=== PATIENT | male | born 1955 | race African-American/Black ===

== ENCOUNTER 2016-04-03 03:35 | Emergency (ER) | payer OTHER ==
[2016-04-03 06:20] VITALS: BP 111/59
--- NOTE | 2016-04-03 06:41 | ED ---
bianca Ibanez Timothy, scribed for Oseas Dickerson MD on 04/03/16 at 0354 . Substance Abuse/Use - HPI Summary HPI Summary: Konrad Gonzalez is a 60 yo male [facility] Heroin overdose earlier tonight. Pt was given 2mg Narcan intranasal FIL[employer] by EMS. Pt states he is nauseous currently. Pt states he currently has shingles - History Of Current Complaint Stated Complaint: OVERDOSE Hx Obtained From: Patient Ingestion History: Type/Name Of Drug - Heroin Severity Initially: Moderate Severity Currently: Moderate Associated Signs And Symptoms: Shortness Of Breath - respiratory failure - Allergies/Home Medications Allergies/Adverse Reactions: Allergies Allergy/AdvReac Type Severity Reaction Status Date / Time No Known Allergies Allergy Verified 07/07/13 10:43 PMH/Surg Hx/FS Hx/Imm Hx Endocrine/Hematology History: Denies: Hx Diabetes, Hx Thyroid Disease Cardiovascular History: Denies: Hx Hypertension Respiratory History: Reports: Hx Asthma - albuterol mdi prn Denies: Hx Chronic Obstructive Pulmonary Disease (COPD) GI History: Denies: Hx Ulcer - Immunization History Date of Tetanus Vaccine: 1999 Date of Influenza Vaccine: never Infectious Disease History: Yes Infectious Disease History: Denies: Hx Clostridium Difficile, Hx Hepatitis, Hx Human Immunodeficiency Virus (HIV), Hx of Known/Suspected MRSA, Hx Shingles, Hx Tuberculosis, Traveled Outside the [place] in Last 30 Days - Family History Known Family History: Positive: Unknown - Social History Alcohol Use: Occasionally Hx Substance Use: No Substance Use Type: Reports: None Hx Tobacco Use: Yes Smoking Status (MU): Never Smoked Tobacco Type: Cigarettes Amount Used/How Often: 1/4 ppd Review of Systems Constitutional: Negative Eyes: Negative ENT: Negative Cardiovascular: Negative Respiratory: Negative Positive: Nausea Genitourinary: Negative Musculoskeletal: Negative Skin: Negative Neurological: Negative Psychological: Normal All Other Systems Reviewed And Are Negative: Yes Physical Exam - Summary Physical Exam Summary: GENERAL: Awake, alert, oriented, no acute distress, very pleasant HEENT: Head is normocephalic, atraumatic, anicteric sclera, clear conjunctiva, 3mm pupils, mucous membranes moist, no erythema, no discharge, no lesions, neck is supple, trachea is midline, no JVD CARDIAC: Regular rate and rhythm, S1, S2, no rub, no murmur, no gallop, 2+ radial and pedal pulses bilaterally RESPIRATORY: Clear to auscultation bilaterally with no rales, rhonchi, or wheezes, non-tender ABDOMEN: Bowel sounds positive, no bruit, soft, non-tender, no CVA tenderness EXTREMITIES: No edema, warm, dry, moving all extremities in a grossly normal manner NEUROLOGICAL: Mood is appropriate, moving all extremities in a grossly normal manner Triage Information Reviewed: Yes Vital Signs On Initial Exam: Initial Vitals Temp Pulse Resp BP Pulse Ox 97 F 71 23 93/49 93 04/03/16 03:45 04/03/16 03:45 04/03/16 03:45 04/03/16 03:45 04/03/16 03:45 Vital Signs Reviewed: Yes Diagnostics - Vital Signs Vital Signs Temp Pulse Resp BP Pulse Ox 04/03/16 03:45 97 F 71 23 93/49 93 - Laboratory Lab Statement: Any lab studies that have been ordered have been reviewed, and results considered in the medical decision making process. - EKG 0344 Cardiac Rate: NL - 69 BPM EKG Interpretation: NSR @ 69 BPM, RBBB, no prior for comparison Course/Dx - Diagnoses Provider Diagnoses: Heroin overdose Discharge - Discharge Plan Condition: Stable Disposition: LAW ENFORCEMENT/COURT Patient Education Materials: Narcotic Abuse (ED) Referrals: Non Staff,Doctor [Primary Care Provider] - 2 Days [facility] PHYSICIAN REFERRAL [Outside] - 2 Days Additional Instructions: Follow up with your primary care physician regarding your admission to the emergency department. Return to the emergency department with any new or recurring symptoms. The documentation as recorded by the bianca mcconnell Timothy accurately reflects the service I personally performed and the decisions made by , Oseas Dickerson MD.
== END 2016-04-03 06:20 ==
LOC: ED 03:35
DX: R06.02 Shortness of breath (principal); R11.0 Nausea; T40.1X1A Poisoning by heroin, accidental (unintentional), initial encounter; Y92.9 Unspecified place or not applicable
CPT/HCPCS: 93005; 99282

== ENCOUNTER → 2018-01-13 00:09 | Emergency (ER) | payer SELFPAY ==
[~2018-01-13 00:09] MED LIST: Cyclobenzaprine TAB* 10 MG PO ONE; Ketorolac INJ* 60 MG/2 ML VIAL IM ONE; Lidocaine PATCH 5%* 1 PATCH TRANSDERM ONE
--- NOTE | 2018-01-13 00:52 | ED ---
Lower Extremity - HPI Summary HPI Summary: 62-year-old male presents with left leg pain, chest wall pain, and head injury since yesterday. He states that he may have fallen when he had some ETOH. He has abrasion noted to forehead. He states he was vomiting earlier in the day. He states that he fell asleep on a table the night before and woke up with back pain. States the back pain radiates to his left leg. no saddle anesthesia or loss of bowel or bladder. states that he entire leg feels numb. No fevers. Hasn't taking anything for his pain. He denies any bowel pain. No shortness of breath. No neck pain. No other injury. no urinary symptoms. he states his ribs hurt when he woke up this morning. no cardiac history. he states it is chest wall pain and is reproducible. - History of Current Complaint Chief Complaint: EDExtremityLower Stated Complaint: LT LEG PAIN Time Seen by Provider: 01/13/18 00:25 Pain Intensity: 10 - Allergies/Home Medications Allergies/Adverse Reactions: Allergies Allergy/AdvReac Type Severity Reaction Status Date / Time black pepper Allergy Rash Verified 01/13/18 00:35 PMH/Surg Hx/FS Hx/Imm Hx Endocrine/Hematology History: Denies: Hx Diabetes, Hx Thyroid Disease Cardiovascular History: Denies: Hx Hypertension Respiratory History: Reports: Hx Asthma - albuterol mdi prn Denies: Hx Chronic Obstructive Pulmonary Disease (COPD) GI History: Denies: Hx Ulcer - Immunization History Date of Tetanus Vaccine: 1999 Date of Influenza Vaccine: never Infectious Disease History: Yes Infectious Disease History: Denies: Hx Clostridium Difficile, Hx Hepatitis, Hx Human Immunodeficiency Virus (HIV), Hx of Known/Suspected MRSA, Hx Shingles, Hx Tuberculosis, Traveled Outside the [place] in Last 30 Days - Family History Known Family History: Positive: Unknown - Social History Alcohol Use: Occasionally Hx Substance Use: No Substance Use Type: Reports: None Hx Tobacco Use: Yes Smoking Status (MU): Light Every Day Tobacco Smoker Type: Cigarettes Amount Used/How Often: 1/4 ppd Review of Systems Negative: Fever Positive: Chest Pain - wall pain Negative: Shortness Of Breath Positive: Myalgia - back and left leg pain Positive: Headache All Other Systems Reviewed And Are Negative: Yes Physical Exam Triage Information Reviewed: Yes Vital Signs On Initial Exam: Initial Vitals Temp Pulse Resp BP Pulse Ox 98.5 F 77 16 151/100 95 01/13/18 00:11 01/13/18 00:11 01/13/18 00:11 01/13/18 00:11 01/13/18 00:11 Vital Signs Reviewed: Yes Appearance: Positive: Well-Appearing Skin: Positive: Warm, Dry, Other - abrasion to forehead with contusion present Head/Face: Positive: Normal Head/Face Inspection, Other - no step off, racoon eyes, mcgrath sign Eyes: Positive: Normal, EOMI, BRIANDA, Conjunctiva Clear ENT: Positive: Normal ENT inspection, Pharynx normal, TMs normal Respiratory/Lung Sounds: Positive: Clear to Auscultation, Breath Sounds Present , Other - tenderness on chest wall Cardiovascular: Positive: Normal, RRR Abdomen Description: Positive: Nontender, Soft Bowel Sounds: Positive: Present Musculoskeletal: Positive: Limited @ - left leg, Other - tenderness over si joint left, no midline tenderness back, pos SLR, good pulses, sensation grossly intact to touch Neurological: Positive: Sensory/Motor Intact, Alert, Oriented to Person Place, Time, CN Intact II-III, Babinski Bilateral - normal Psychiatric: Positive: Normal Diagnostics - Vital Signs Vital Signs Temp Pulse Resp BP Pulse Ox 01/13/18 00:11 98.5 F 77 16 151/100 95 - Laboratory Lab Statement: Any lab studies that have been ordered have been reviewed, and results considered in the medical decision making process. - CT brain CT Interpretation: No Acute Changes CT Interpretation Completed By: Radiologist chest CT Interpretation: No Acute Changes CT Interpretation Completed By: Radiologist lumbar CT Interpretation: Positive (See Comments) - IMPRESSION: There are acute fractures of the right transverse processes of L1-L2 and L3 with slight separation. No other fracture. CT Interpretation Completed By: Radiologist Lower Extremity Course/Dx - Course Course Of Treatment: 62-year-old male presents with left leg pain, chest wall pain, and head injury yesterday. He states that he may have fallen when he was drunk. He has abrasion noted to forehead. He states he was vomiting earlier in the day. He states that he fell asleep on a table the night before and woke up with back pain. States the back pain radiates to his left leg. no saddle anesthesia or loss of bowel or bladder. No fevers. Hasn't taking anything for his pain. He denies any bowel pain. No shortness of breath. No neck pain. No other injury. no urinary symptoms. he states his ribs hurt. on exam reproducible chest wall pain. tenderness over SI joint left side of back. neurovascular intact. normal neuro exam. will vomiting and ETOH got CT brain. CT brain normal. chest normal. CT lumbar shows fracture of L1-L2 and L3. on exam patient does not have pain there. has pain at L5 level. discussed will give flexeril, steriod pack and ibuprofen for pain. told to follow up with neurosurgery about fractures although they are stable fractures. told to est care with primary. patient understand and agrees with plan. - Diagnoses Differential Diagnosis/HQI/PQRI: Positive: Fracture (Closed), Sprain, Strain, Other - sciatica Provider Diagnoses: Head injury, Chest wall pain, Left leg pain, Fracture of transverse process of lumbar vertebra Discharge - Sign-Out/Discharge Documenting (check all that apply): Patient Departure - Discharge Plan Condition: Good Disposition: HOME Prescriptions: Cyclobenzaprine TAB* [Flexeril 10 MG TAB*] 10 mg PO TID PRN #21 tab PRN Reason: Pain Ibuprofen TAB* [Motrin TAB* 600 MG] 600 mg PO Q8H PRN #20 tab PRN Reason: Pain methylPREDNISolone [Medrol Dosepak 4 MG*] 4 mg PO .SEE TAYLOR INSTRUCTION #1 packet Patient Education Materials: Lumbar Radiculopathy (ED) Referrals: Care [facility] [Outside] Dony Pena MD [Medical Doctor] - Additional Instructions: follow up with [facility] connections within 5 days follow up with neurosurgery Follow directions on package for Medrol pack Take muscle relaxers three times a day Use ibuprofen or Tylenol for pain every 8 hours ice/heat area, move as much as possible Return to ED if develop any new or worsening symptoms - Billing Disposition and Condition Condition: GOOD Disposition: Home
--- NOTE | 2018-01-13 01:30 | RAD ---
EXAM: CT Head Without Intravenous Contrast CLINICAL HISTORY: 62 years old, male; Injury or trauma; Fall; Additional info: Fall, head injury TECHNIQUE: Axial computed tomography images of the head/brain without intravenous contrast. All CT scans at this facility use at least one of these dose optimization techniques: automated exposure control; mA and/or kV adjustment per patient size (includes targeted exams where dose is matched to clinical indication); or iterative reconstruction. COMPARISON: No relevant prior studies available. FINDINGS: Brain: Unremarkable. No hemorrhage. No significant white matter disease. No edema. Ventricles: No intracranial bleed, suspicious mass, or mass effect. Ventricles appear unremarkable. Bones/joints: Unremarkable. No acute fracture. Soft tissues: Unremarkable. Sinuses: Unremarkable as visualized. No acute sinusitis. Mastoid air cells: Unremarkable as visualized. No mastoid effusion. IMPRESSION: No intracranial bleed, suspicious mass, or mass effect. Ventricles appear unremarkable. To contact [facility] with a general question: [facility] - [phone] For direct physician to physician contact: Physician Hotline - [phone] [facility] ([facility] Facility ID #[id number])
--- NOTE | 2018-01-13 01:44 | RAD ---
EXAM: CT Chest Without Intravenous Contrast CLINICAL HISTORY: 62 years old, male; Pain; Chest wall pain; Additional info: Chest wall pain, fall TECHNIQUE: Axial computed tomography images of the chest without intravenous contrast. All CT scans at this facility use at least one of these dose optimization techniques: automated exposure control; mA and/or kV adjustment per patient size (includes targeted exams where dose is matched to clinical indication); or iterative reconstruction. Coronal and sagittal reformatted images were created and reviewed. COMPARISON: No relevant prior studies available. FINDINGS: Lungs: No consolidation, effusion or edema. Pleural space: See findings above and below. Heart: Unremarkable. No cardiomegaly. No significant pericardial effusion. Bones/joints: No fracture or pneumothorax. Soft tissues: See above. Vasculature: Unremarkable. No thoracic aortic aneurysm. Lymph nodes: Unremarkable. No enlarged lymph nodes. Kidneys and ureters: Right renal cysts. IMPRESSION: 1. No consolidation, effusion or edema. 2. No fracture or pneumothorax. To contact [facility] with a general question: [facility] - [phone] For direct physician to physician contact: Physician Hotline - [phone] [facility] ([facility] Facility ID #[id number])
--- NOTE | 2018-01-13 01:46 | RAD ---
EXAM: CT Lumbar Spine Without Intravenous Contrast CLINICAL HISTORY: 62 years old, male; Pain; Low back pain; Additional info: Left side back pain TECHNIQUE: Axial computed tomography images of the lumbar spine without intravenous contrast. All CT scans at this facility use at least one of these dose optimization techniques: automated exposure control; mA and/or kV adjustment per patient size (includes targeted exams where dose is matched to clinical indication); or iterative reconstruction. Coronal and sagittal reformatted images were created and reviewed. COMPARISON: No relevant prior studies available. FINDINGS: Vertebrae: There are acute fractures of the right transverse process of L1-L2 and L3 with slight separation. No other fracture. Discs/spinal canal/neural foramina: Moderate degenerative change without critical stenosis. Soft tissues: Unremarkable. Kidneys and ureters: Right renal cyst. IMPRESSION: There are acute fractures of the right transverse processes of L1-L2 and L3 with slight separation. No other fracture. To contact [facility] with a general question: [facility] - [phone] For direct physician to physician contact: Physician Hotline - [phone] [facility] ([facility] Facility ID #[id number])
[2018-01-13 04:08] VITALS: BP 0/0
== END | disposition home or self-care (01) ==
LOC: ED 00:09
DX: S09.90XA Unspecified injury of head, initial encounter (principal); S32.009A Unspecified fracture of unspecified lumbar vertebra, initial encounter for closed fracture; M79.605 Pain in left leg; R07.89 Other chest pain; F17.210 Nicotine dependence, cigarettes, uncomplicated; R51 Headache; W19.XXXA Unspecified fall, initial encounter; Y92.9 Unspecified place or not applicable
CPT/HCPCS: 70450; 71250; 72131; 96372; 99282; A9270-GY; J1885

== ENCOUNTER 2018-01-26 08:57 | Emergency (ER) | payer SELFPAY ==
[2018-01-26 09:08] VITALS: BP 150/83
--- NOTE | 2018-01-26 09:49 | UC ---
Lower Extremity/Ankle HPI - HPI Summary HPI Summary: Patient complains of 2 weeks of progressively worsening left lower extremity swelling, redness and pain. Went to [facility] ED 01/13/18 and was diagnosed with radiculopathy and transverse process fractures of L1, L2 and L3. Was given Medrol dosepak, flexeril and ibuprofen. Pt states the pain and swelling are now worse and he has developed dysuria. No fever, nausea or abdominal pain. States he has some "bubbles" coming out of his penis. - History of Current Complaint Chief Complaint: UCLowerExtremity Stated Complaint: LEG COMPLAINT Time Seen by Provider: 01/26/18 09:03 Hx Obtained From: Patient Onset/Duration: Gradual Onset, Lasting Weeks, Still Present Severity Initially: Moderate Severity Currently: Moderate Pain Intensity: 8 Pain Scale Used: 0-10 Numeric Aggravating Factor(s): Standing, Ambulation Alleviating Factor(s): Rest Able to Bear Weight: Yes - Allergies/Home Medications Allergies/Adverse Reactions: Allergies Allergy/AdvReac Type Severity Reaction Status Date / Time black pepper Allergy Rash Verified 01/26/18 09:07 PMH/Surg Hx/FS Hx/Imm Hx Respiratory History: Asthma - Surgical History Surgical History: None - Family History Family History: SISTER - DVT - Social History Alcohol Use: Occasionally Substance Use Type: None Smoking Status (MU): Light Every Day Tobacco Smoker Type: Cigarettes Amount Used/How Often: 1/4 ppd Review of Systems Constitutional: Negative Skin: Other - LEFT LEG REDNESS/SWELLING Respiratory: Negative Cardiovascular: Negative Gastrointestinal: Negative Genitourinary: Dysuria Musculoskeletal: Arthralgia, Calf Tenderness, Edema All Other Systems Reviewed And Are Negative: Yes Physical Exam Triage Information Reviewed: Yes Appearance: Well-Appearing, No Pain Distress, Well-Nourished Vital Signs: Initial Vital Signs Temp 99.0 F 01/26/18 09:01 Pulse 97 01/26/18 09:01 Resp 18 01/26/18 09:01 BP 150/83 01/26/18 09:01 Pulse Ox 98 01/26/18 09:01 Vital Signs Reviewed: Yes Eyes: Positive: Conjunctiva Clear ENT: Positive: Hearing grossly normal Neck: Positive: Supple Respiratory: Positive: No respiratory distress, No accessory muscle use Cardiovascular: Positive: Pulses Normal Abdomen Description: Positive: Soft Musculoskeletal: Positive: Edema @ - LEFT LEG FROM GROIN TO FOOT SIGNIFICANTLY EDEMATOUS, Other: - MINIMAL LEFT CALF TENDERNESS Neurological: Positive: Alert Psychological: Positive: Age Appropriate Behavior Skin: Positive: Other - LEFT LEG ERYTHEMA Lower Extremity Course/Dx - Differential Dx/Diagnosis Provider Diagnoses: 1. LEFT LOWER EXTREMITY EDEMA. 2. HEMATURIA Discharge - Sign-Out/Discharge Documenting (check all that apply): Patient Departure All imaging exams completed and their final reports reviewed: No Studies - Discharge Plan Condition: Stable Disposition: TRANS HIGHER LV OF CARE FAC Patient Education Materials: Hematuria (ED), Leg Edema (ED) Referrals: [facility] [Outside] - 2 Weeks Lance Gong MD [Medical Doctor] - If Needed Additional Instructions: GO DIRECTLY TO THE [facility] ED FROM HERE FOR FURTHER EVALUATION OF YOUR LEG. I AM CONCERNED ABOUT THE DEGREE OF SWELLING IN YOUR LEFT LEG. I THINK YOU WOULD BENEFIT FROM IMAGING (ULTRASOUND). YOU HAVE DECLINED TRANSFER TO THE ED BY AMBULANCE. BE ADVISED THAT BY NOT TRAVELING IN A MONITORED SETTING YOU COULD BE RISKING WORSENING OF YOUR CONDITION THAT COULD POSE A THREAT TO YOUR LIFE, HEALTH AND MEDICAL SAFETY. YOU HAVE BLOOD IN YOUR URINE TODAY. THIS MAY JUST BE A TRANSIENT CONDITION DUE TO ACTIVITY BUT YOU MUST REPEAT THE URINE TEST IN A COUPLE OF WEEKS TO ENSURE IT HAS CLEARED. IF PERSISTENT YOU MUST FOLLOW-UP WITH UROLOGY FOR FURTHER EVALUATION BE SURE TO FOLLOW-UP WITH NEUROSURGERY ADVISED AT YOUR LAST ED VISIT FOR YOUR VERTEBRAL FRACTURES. CALL THE NUMBER BELOW FOR ASSISTANCE IN ESTABLISHING WITH A PCP An additional resource available to assist in finding the appropriate physician for your health care needs is the [facility] ([facility]). You may contact them by calling [phone]. - Billing Disposition and Condition Condition: STABLE Disposition: Trans Higher Lvl of Care Fac
== END 2018-01-26 09:54 | disposition short-term general hospital (02) ==
LOC: UCEAST 08:57
DX: R60.0 Localized edema (principal); R31.9 Hematuria, unspecified; F17.210 Nicotine dependence, cigarettes, uncomplicated
CPT/HCPCS: 81003; 87086; 87491; 87591; 99212; G0463

== ENCOUNTER 2018-03-14 13:39 | Inpatient (IN) | payer MEDICAID, OTHER ==
--- NOTE | 2018-03-14 14:08 | ED ---
HPI Chest Pain - HPI Summary HPI Summary: This pt is a 62 y/o male presenting to [facility] c/o chest pain for the past few days. Pt reports he only has chest pain when he coughs. He describes chest pain as mid sternal nonradiating and sharp and "pins and needles." Additionally notes coughing with blood, diaphoresis, left leg swelling. Denies fever, chills , SOB, nausea, vomiting, headache, weakness, numbness. Pt states he had blood thinners last month, but no longer takes them. He admits to tobacco use and occasional alcohol. No cardiac hx. - History of Current Complaint Chief Complaint: EDChestWallPain Time Seen by Provider: 03/14/18 13:54 Hx Obtained From: Patient Onset/Duration: Started Days Ago, Still Present Timing: Lasting Days Current Severity: Moderate Chest Pain Location: Mid Sternal Chest Pain Radiates: No Character: Sharp/Stabbing - sharp, Other: - pin and needles Aggravating Factor(s): Other: - cough Alleviating Factor(s): Nothing Associated Signs and Symptoms: Positive: Chest Pain, Diaphoresis, Cough, Edema. Negative: Headaches, Numbness, Weakness, Shortness of Breath, Fever, Chills, Nausea, Vomiting - Allergy/Home Medications Allergies/Adverse Reactions: Allergies Allergy/AdvReac Type Severity Reaction Status Date / Time black pepper Allergy Rash Verified 01/26/18 09:07 Home Medications: Home Medications NK [No Home Medications Reported] 03/14/18 [History Confirmed 03/14/18] PMH/Surg Hx/FS Hx/Imm Hx Endocrine/Hematology History: Denies: Hx Diabetes, Hx Thyroid Disease Cardiovascular History: Denies: Hx Coronary Artery Disease, Hx Hypertension Respiratory History: Reports: Hx Asthma - albuterol mdi prn Denies: Hx Chronic Obstructive Pulmonary Disease (COPD) GI History: Denies: Hx Ulcer - Immunization History Date of Tetanus Vaccine: 1999 Date of Influenza Vaccine: never Infectious Disease History: No Infectious Disease History: Denies: Hx Clostridium Difficile, Hx Hepatitis, Hx Human Immunodeficiency Virus (HIV), Hx of Known/Suspected MRSA, Hx Shingles, Hx Tuberculosis, Traveled Outside the [place] in Last 30 Days - Family History Known Family History: Positive: Hypertension - father and sister Family History: SISTER - DVT - Social History Alcohol Use: Occasionally Hx Substance Use: No Substance Use Type: Reports: None Hx Tobacco Use: Yes Smoking Status (MU): Light Every Day Tobacco Smoker Type: Cigarettes Amount Used/How Often: 1/4 ppd Review of Systems Positive: Skin Diaphoresis. Negative: Fever, Chills Positive: Chest Pain Respiratory: Other - POS: hemoptysis Positive: Cough. Negative: Shortness Of Breath Negative: Vomiting, Nausea Positive: Edema - left leg Negative: Headache, Weakness, Numbness All Other Systems Reviewed And Are Negative: Yes Physical Exam - Summary Physical Exam Summary: VITAL SIGNS: Reviewed. GENERAL: Patient is a well-developed and nourished male who is lying comfortable in the stretcher. Patient is not in any acute respiratory distress. HEAD AND FACE: No signs of trauma. No ecchymosis, hematomas or skull depressions. No sinus tenderness. EYES: PERRLA, EOMI x 2, No injected conjunctiva, no nystagmus. EARS: Hearing grossly intact. Ear canals and tympanic membranes are within normal limits. MOUTH: Oropharynx within normal limits. NECK: Supple, trachea is midline, no adenopathy, no JVD, no carotid bruit, no c- spine tenderness, neck with full ROM. CHEST: Symmetric, reproducible chest tenderness LUNGS: Crackles in both bases of the lungs. Wheezing. CVS: Regular rate and rhythm, S1 and S2 present, no murmurs or gallops appreciated. ABDOMEN: Soft, non-tender. No signs of distention. No rebound, no guarding, and no masses palpated. Bowel sounds are normal. EXTREMITIES: FROM in all major joints, no edema, no cyanosis or clubbing. NEURO: Alert and oriented x 3. No acute neurological deficits. Speech is normal and follows commands. SKIN: Dry and warm Triage Information Reviewed: Yes Vital Signs On Initial Exam: Initial Vitals Temp Pulse Resp BP Pulse Ox 99 F 110 20 131/66 97 03/14/18 13:42 03/14/18 13:42 03/14/18 13:42 03/14/18 13:42 03/14/18 13:42 Vital Signs Reviewed: Yes Diagnostics - Vital Signs Vital Signs Temp Pulse Resp BP Pulse Ox 03/14/18 13:42 99 F 110 20 131/66 97 - Laboratory Result Diagrams: 03/14/18 14:10 03/14/18 14:09 Lab Statement: Any lab studies that have been ordered have been reviewed, and results considered in the medical decision making process. - Radiology Chest XR Radiology Interpretation Completed By: Radiologist Summary of Radiographic Findings: IMPRESSION: Left upper lobe density consistent with either mass or infiltrate recommend a CT of the chest with contrast for further evaluation. Dr. Anderson has reviewed this report. - EKG 13:51 Cardiac Rate: NL - at 98 bpm EKG Rhythm: Sinus Rhythm EKG Comparison: No Significant Change - similar to prior EKG on 04/03/16. Summary of EKG Findings: Right bundle branch block. Re-Evaluation - Re-Evaluation First Eval Re-Evaluation Time: 15:00 Comment: I reviewed the lab and XR results with the pt. I discussed with pt the admission plan. Chest Pain Course/Dx - Course Assessment/Plan: This pt is a 62 y/o male presenting to [facility] c/o chest pain for the past few days. Pt reports he only has chest pain when he coughs. He describes chest pain as mid sternal nonradiating and sharp and "pins and needles." Additionally notes coughing with blood, diaphoresis, left leg swelling. Denies fever, chills, SOB, nausea, vomiting, headache, weakness, numbness. Pt states he had blood thinners last month, but no longer takes them. He admits to tobacco use and occasional alcohol. No cardiac hx. Blood work shows a WBC of 18, hemoglobin 12.2, hematocrit 37, platelets 220. INR is 1.16, APTT of 36.5, sodium 1:30, chloride 99, BUN is 26 and creatinine is 1.33. Glucose is 146 and magnesium 1.5 for which the patient was given magnesium IV. Chest x-ray impression: Left upper lobe density consistent with either a mass or infiltrate recommend a CT of the chest without contrast for further regulation. In the ED course the patient was given IV fluids, Rocephin and azithromycin for the pneumonia. At this point I discussed my physical exam and findings with Dr. Barbosa from the hospitalist services who accepted the patient for admission. Patient is hemodynamically stable, alert oriented 3. - Diagnoses Provider Diagnoses: Pneumonia - Provider Notifications Discussed Care Of Patient With: Shaista Barbosa - hospitalist Time Discussed With Above Provider: 14:55 Instructed by Provider To: Admit As Inpatient Discharge - Sign-Out/Discharge Documenting (check all that apply): Patient [place]arture [place] [facility] [place] Condition: Stable Disposition: ADMITTED TO [facility] - Billing Disposition and Condition Condition: STABLE Disposition: Admitted to [facility] - Attestation Statements Document Initiated by Julia: Yes Documenting Scribe: Amy Keane Provider For Whom Julia is Documenting (Include Credential): Elfego Anderson MD Scribe Attestation: Amy Ibanez, scribed for Elfego Anderson MD on 03/14/18 at 1907. Scribe Documentation Reviewed: Yes Provider Attestation: The documentation as recorded by the Amy mcconnell accurately reflects the service I personally performed and the decisions made by , Elfego Anderson MD Status of Scribe Document: Viewed
[2018-03-14 14:26] LABS: Activated Partial Thrombo Time 36.5 seconds (26.0-36.3); INR 1.16 (0.77-1.02)
[2018-03-14 14:34] LABS: Hematocrit 37 % (42-52); Hemoglobin 12.2 g/dl (14.0-18.0); Mean Corpuscular HGB Conc 33 g/dl (31-36); Mean Corpuscular Hemoglobin 27 pg (27-31); Mean Corpuscular Volume 82 fL (80-94); Mean Platelet Volume 8.7 fL (7.4-10.4); Platelet Count 220 10^3/ul (150-450); Red Blood Count 4.47 10^6/ul (4.00-5.40); Red Cell Distribution Width 16 % (10.5-15)
[2018-03-14 14:37] LABS: Albumin 3.6 g/dL (3.2-5.2); Albumin/Globulin Ratio 0.8 (1-3); BUN/Creatinine Ratio 19.5 (8-20); Calcium 8.9 mg/dL (8.6-10.3); EGFR Non-African American 54.7 (>60); Globulin 4.7 g/dL (2-4); Magnesium 1.5 mg/dL (1.9-2.7); Potassium 3.8 mmol/L (3.5-5.0); Total Bilirubin 0.8 mg/dL (0.2-1.0); Total Protein 8.3 g/dL (6.4-8.9)
[2018-03-14] MEDS ORDERED: cefTRIAXone(*) 1 GM in NS 0.9% 50 ML* 50 ML IVPB ONE (14:40)
[2018-03-14] MEDS ORDERED: Azithromycin IV* 500 MG ADVAN VIAL/BAG IVPB ONE (14:40)
[2018-03-14] MEDS ORDERED: Magnesium Sulfate 1 GM IV* 1 GM/100 ML BAG IV ONE (14:56)
[2018-03-14 15:02] LABS: TSH (Thyroid Stimulating Horm) 1.98 mcIU/mL (0.34-5.60)
[2018-03-14 15:28] LABS: Immature Granulocytes 11 % (0-9); Lymphocytes % 4 %; Monocytes % 3 %; Neutrophil % 81 %
[2018-03-14 15:30] LABS: ABS Neutrophils 16.56 10^3/ul (1.5-7.7)
[2018-03-14 15:31] LABS: ABS Basophils 0.18 10^3/ul (0-0.2)
[2018-03-14] MEDS ORDERED: Ondansetron INJ* 2 MG/ML VIAL IV PRN (16:30)
[2018-03-14] MEDS ORDERED: Acetaminophen TAB* 325 MG PO PRN (16:30)
[2018-03-14] MEDS ORDERED: Albuterol 2.5 MG/3 ML NEB.SOL* (0.083%) INH PRN (16:30)
[2018-03-14] MEDS ORDERED: NS 0.9% 1000 ML* 1,000 ML IV ONE (16:30)
[2018-03-14] MEDS ORDERED: Iohexol 300* (CONTRAST) 10 ML SDV IV ONE (16:34)
[2018-03-14 17:01] LABS: C Reactive Protein 231.08 mg/L (<8.01)
--- NOTE | 2018-03-14 19:45 | HP ---
HISTORY AND PHYSICAL: DATE OF ADMISSION: 03/14/18 PRIMARY CARE PROVIDER: None. PROVIDER: Vickie Amaya NP ATTENDING PHYSICIAN WHILE IN THE HOSPITAL: Dr. Shaista Barbosa * (dictated by Vickie Amaya NP). CHIEF COMPLAINT: 1. Shortness of breath. 2. Hemoptysis. HISTORY OF PRESENT ILLNESS: Mr. Gonzalez is a 62-year-old male with no significant past medical history, who presented to the emergency room with complaints of coughing up blood for 3 to 4 days, night sweats and shortness of breath. The patient does report that he has increased pain in his left chest with deep breath and coughing. He also reports that he has a remote history of left leg swelling approximately 2 months ago. He denies any fever. He denies any chills. Denies any headache, vomiting, nausea or diarrhea. He does report chest pain associated with cough and deep breath. He does report hemoptysis. He does report slight shortness of breath. He denies any hematuria or dysuria. He denies any focal weakness or sensory loss. Denies any visual complaints of dysphagia, arthralgias, myalgias, rashes, lesions, or open sores. He does complain of pain to his left foot that has been chronic times several months. While in the emergency room, he had routine lab work drawn. He was found to have 18,000 white count and chest x-ray with questionable left upper lobe density, consolidation versus mass. Due to the concern for pneumonia, we were asked to see and evaluate him for admission. PAST MEDICAL HISTORY: Asthma. PAST SURGICAL HISTORY: None. HOME MEDICATIONS: Albuterol inhaler as needed. ALLERGIES: To BLACK PEPPER. FAMILY HISTORY: No reported history of coronary artery disease. Father with a history of diabetes, sister with a history of breast cancer. SOCIAL HISTORY: He reports he smokes 4 to 5 cigarettes daily x40 years. He does use alcohol occasionally. He denies any illicit drug use. He is , but lives alone. Surrogate decision maker in the event he is unable to make his own decisions is his sister, Basia. He is a full code. REVIEW OF SYSTEMS: There has been no documented fever. No unintended weight loss. He does report chest pain with cough and deep breath. Denies any edema. Does report cough, hemoptysis, and slight shortness of breath. Denies any nausea, vomiting, or diarrhea. Denies any abdominal pain. Denies any gross hematuria or dysuria. Denies any focal weakness or sensory loss. Denies any visual complaints, dysphagia, arthralgias or myalgias. Denies any rashes or lesions. Denies any psychosis or anxiety. He does report pain to his left foot that has been chronic times several months. PHYSICAL EXAMINATION GENERAL: Mr. Gonzalez is a 62-year-old male. Alert and oriented, sitting on the stretcher in the emergency room. He does not appear to be in any acute distress. HEENT: Head is atraumatic, normocephalic. Eyes: EOMs are intact. Sclerae anicteric and not pale. Oral mucosa appear to be moist. NECK: Supple. LUNGS: Lungs are diminished bilaterally with a few scattered rhonchi. CARDIAC: S1, S2. Regular rate and rhythm. No murmurs, rubs, or gallops. ABDOMEN: Soft and nontender. Bowel sounds are present x4. EXTREMITIES: Pedal pulses are +2 bilaterally. There is no pitting edema noted to the lower extremities. He can move all 4 extremities with 5/5 strength. NEUROLOGIC: He is awake, alert, and oriented x3. Speech is clear. Thought process is intact. There is no gross focal deficits. SKIN: Intact. DIAGNOSTIC STUDIES/LAB DATA: WBCs were 18.0, RBCs 4.47, hemoglobin 12.2, hematocrit was 37, platelet count was 220, absolute neutrophils were 16.56, absolute lymphs were 72. INR was 1.16, APTT was 36.5. Chemistry: Sodium was 130, potassium 3.8, chloride was 99, carbon dioxide was 23, anion gap was 8, BUN was 26, creatinine 1.33, glucose was 146, lactic acid 1.5, calcium 8.9, magnesium was 1.5. ASTs were 19, ALTs were 11, alkaline phosphatase was 52. Total creatine kinase was 48. Troponin was 0.03. C-reactive protein is pending. BNP was 58. TSH was 1.98. He had a chest x-ray. Radiologist's impression: Left upper lobe density consistent with either a mass or infiltrate. Recommend CT of the chest with contrast for further evaluation. He had an electrocardiogram which showed sinus rhythm at a rate of 98 with a right bundle-branch block. CT of the chest is currently pending. ASSESSMENT AND PLAN: Mr. Gonzalez is a 62-year-old male with past medical history significant for asthma and tobacco use, who presented to the emergency room with complaints of coughing up blood for 3 to 4 days and shortness of breath, chest pain. Given these symptoms, we were asked to see and evaluate him for admission. He will be admitted inpatient for: 1. Shortness of breath. I suspect that his shortness of breath is related to pneumonia. He does have an elevated white count at 18,000. He was given azithromycin, ceftriaxone in the emergency room. We will continue this throughout his hospitalization with azithromycin 500 mg IV daily and ceftriaxone 1 g daily. He can have albuterol nebs as needed for his shortness of breath and wheezing. Chest x-ray showed questionable density in the left upper lobe and Radiology recommended CT of the chest with contrast. This has been ordered and currently pending. The patient does also have hemoptysis, which could be consistent with pneumonia. So, we will get a CT of the chest to rule out any other pathology. 2. Hemoptysis. The patient does report hemoptysis of small blood clots in his sputum. His chest x-ray does have concern for density in the left upper lobe, consolidation versus density. We will get a CT of the chest to rule out any other pathology. It is currently pending at this time. 3. Asthma. The patient continue to have albuterol nebulizer q.4 hours as needed for wheezing and shortness of breath. 4. FEN: He can have regular diet. 5. Code status. He is a full code. 6. DVT prophylaxis. I will place him on heparin subcu. 7. Disposition. The patient will be placed inpatient. TIME SPENT: Time spent on this admission was 60 minutes, greater than half that time was spent [id number] with the patient obtaining my history and physical, the other half the time was spent going over my plan of care and implementing my plan of care. I have discussed this with my attending, Dr. Shaista Barbosa, she is in agreement with my plan. VICKIE AMAYA, MARBELLA [id number]/[facility] #: [id number] DESI
[2018-03-14] MEDS: Heparin VIAL(*) 5000 UNITS/ML VIAL (FIVE THOUSAND) SUBCUT SCH (21:28)
[2018-03-15] MEDS: Heparin VIAL(*) 5000 UNITS/ML VIAL (FIVE THOUSAND) SUBCUT SCH ×3 (05:50→21:22)
[2018-03-15 07:25] LABS: ABS Basophils 0 10^3/ul (0-0.2); ABS Eosinophils 0 10^3/ul (0-0.6); ABS Lymphocytes 1.1 10^3/ul (1.0-4.8); ABS Monocytes 0.8 10^3/ul (0-0.8); ABS Neutrophils 9.7 10^3/ul (1.5-7.7); ABS Nucleated RBC 0 10^3/ul; Eosinophil % 0.1 %; Hematocrit 33 % (42-52); Hemoglobin 10.6 g/dl (14.0-18.0); Lymphocyte % 9.6 %; Mean Corpuscular HGB Conc 33 g/dl (31-36); Mean Corpuscular Hemoglobin 27 pg (27-31); Mean Corpuscular Volume 82 fL (80-94); Mean Platelet Volume 8.5 fL (7.4-10.4); Nucleated Red Blood Cells % 0; Platelet Count 189 10^3/ul (150-450); Red Blood Count 3.95 10^6/ul (4.00-5.40); Red Cell Distribution Width 16 % (10.5-15); White Blood Count 11.6 10^3/ul (3.5-10.8)
[2018-03-15 07:40] LABS: BUN/Creatinine Ratio 20.6 (8-20); Calcium 8.8 mg/dL (8.6-10.3); EGFR Non-African American 74.2 (>60); Potassium 3.9 mmol/L (3.5-5.0)
[2018-03-15] MEDS: cefTRIAXone(*) 1 GM in NS 0.9% 50 ML* 50 ML IVPB SCH (15:16)
[2018-03-15] MEDS: Azithromycin IV(*) 500 MG in NS 0.9% 250 ML* 250 ML IVPB SCH (15:47)
--- NOTE | 2018-03-15 17:46 | PN ---
Subjective Date of Service: 03/15/18 Interval History: Patient seen and examined at bedside. Denies fever, chills, shortness of breath , chest discomfort, N/V/D. He states that he is feeling better, but still not yet to his baseline. Denies cough or hemoptysis today. Tele: Sinus rhythm, rate 80's. Family History: Unchanged from Admission Social History: Unchanged from Admission Past Medical History: Unchanged from Admission Objective Active Medications: Acetaminophen (Tylenol Tab*) 650 mg PO Q4H PRN Reason: FEVER/PAIN Albuterol (Ventolin 2.5 Mg/3 Ml Neb.Elzbieta*) 2.5 mg INH [id number] AWAKE PRN Reason: sob/wheezing Heparin Sodium (Porcine) (Heparin Vial(*)) 5,000 units SUBCUT Q8HR MANISHA Ceftriaxone Sodium 1 gm/ (Sodium Chloride) 50 mls @ 200 mls/hr IVPB Q24H MANISHA Azithromycin 500 mg/ Sodium (Chloride) 250 mls @ 250 mls/hr IVPB Q24H MANISHA Ondansetron HCl (Zofran Inj*) 4 mg IV Q4H PRN Reason: NAUSEA/VOMITING Vital Signs - 8 hr 03/15/18 03/15/18 11:30 15:32 Temperature 97.6 F 98.2 F Pulse Rate 80 73 Respiratory 16 16 Rate Blood Pressure 110/53 122/67 (mmHg) O2 Sat by Pulse 96 95 Oximetry Oxygen Devices in Use Now: None Appearance: NAD, laying in bed Ears/Nose/Mouth/Throat: Mucous Membranes Moist Respiratory: Symmetrical Chest Expansion and Respiratory Effort, Clear to Auscultation Cardiovascular: NL Sounds; No Murmurs; No JVD, RRR Abdominal: NL Sounds; No Tenderness; No Distention Extremities: No Edema Skin: No Rash or Ulcers Neurological: Alert and Oriented x 3, NL Muscle Strength and Tone Lines/Tubes/Other Access: Clean, Dry and Intact Peripheral IV - site benign Nutrition: Taking PO's Result Diagrams: 03/15/18 07:02 03/15/18 07:02 Microbiology and Other Data: Microbiology 03/15/18 01:35 Gram Stain - Final Sputum Assess/Plan/Problems-Billing Assessment: - Patient Problems (1) Pneumonia Code(s): J18.9 - PNEUMONIA, UNSPECIFIED ORGANISM SNOMED Code(s): 322773490 Comment: - Afebrile, leukocytosis improving - Community Aquired - Hemoptysis has resolved - Chest xray shows possible density in the left upper lobe - Chest CT shows left lobe PNA - Continue azithromycin and ceftriaxone (2) Asthma Code(s): J45.909 - UNSPECIFIED ASTHMA, UNCOMPLICATED SNOMED Code(s): 035354076 Comment: - No signs of exacerbation at this time - Continue Albuterol PRN (3) DVT prophylaxis Code(s): LDJ3389 - SNOMED Code(s): 490794233 Comment: - SQ heparin (4) Full code status Code(s): Z78.9 - OTHER SPECIFIED HEALTH STATUS SNOMED Code(s): 054413095 Status and Disposition: Inpatient. Discharge to home when medically stable, possibly 1-2 days.
[2018-03-16 04:20] LABS: Urine Appearance Clear; Urine Bacteria Absent (Absent); Urine Bilirubin Negative (Negative); Urine Blood 1+ (Negative); Urine Color Yellow; Urine Glucose Negative (Negative); Urine Ketones Negative (Negative); Urine Nitrite Negative (Negative); Urine Protein Negative (Negative); Urine Red Blood Cell Trace(0-2/hpf) (Absent); Urine Specific Gravity 1.018 (1.010-1.030); Urine Urobilinogen Negative (Negative); Urine White Blood Cell Absent (Absent)
[2018-03-16] MEDS: Heparin VIAL(*) 5000 UNITS/ML VIAL (FIVE THOUSAND) SUBCUT SCH ×2 (05:29→14:48)
[2018-03-16 06:14] LABS: ABS Basophils 0 10^3/ul (0-0.2); ABS Eosinophils 0 10^3/ul (0-0.6); ABS Lymphocytes 1.2 10^3/ul (1.0-4.8); ABS Monocytes 0.5 10^3/ul (0-0.8); ABS Neutrophils 3.9 10^3/ul (1.5-7.7); ABS Nucleated RBC 0 10^3/ul; Eosinophil % 0.7 %; Hematocrit 34 % (42-52); Hemoglobin 10.8 g/dl (14.0-18.0); Lymphocyte % 20.7 %; Mean Corpuscular HGB Conc 32 g/dl (31-36); Mean Corpuscular Hemoglobin 27 pg (27-31); Mean Corpuscular Volume 84 fL (80-94); Mean Platelet Volume 8.9 fL (7.4-10.4); Nucleated Red Blood Cells % 0.1; Platelet Count 228 10^3/ul (150-450); Red Blood Count 4.03 10^6/ul (4.00-5.40); Red Cell Distribution Width 16 % (10.5-15); White Blood Count 5.6 10^3/ul (3.5-10.8)
[2018-03-16 06:28] LABS: BUN/Creatinine Ratio 24.5 (8-20); Calcium 8.8 mg/dL (8.6-10.3); EGFR Non-African American 77.8 (>60); Potassium 4.3 mmol/L (3.5-5.0)
--- NOTE | 2018-03-16 11:21 | PN ---
Subjective Date of Service: 03/16/18 Interval History: Patient seen and examined at bedside. Denies fever, chills, shortness of breath , chest discomfort, N/V/D. Reports an occasional cough with white/clear mucous. Has been ambulating in the halls and weaned off O2. Feels ready for discharge to home today. Tele: Sinus rhythm, rate 60's Family History: Unchanged from Admission Social History: Unchanged from Admission Past Medical History: Unchanged from Admission Objective Active Medications: Acetaminophen (Tylenol Tab*) 650 mg PO Q4H PRN Reason: FEVER/PAIN Albuterol (Ventolin 2.5 Mg/3 Ml Neb.Elzbieta*) 2.5 mg INH [id number] AWAKE PRN Reason: sob/wheezing Heparin Sodium (Porcine) (Heparin Vial(*)) 5,000 units SUBCUT Q8HR MANISHA Ceftriaxone Sodium 1 gm/ (Sodium Chloride) 50 mls @ 200 mls/hr IVPB Q24H MANISHA Azithromycin 500 mg/ Sodium (Chloride) 250 mls @ 250 mls/hr IVPB Q24H MANISHA Ondansetron HCl (Zofran Inj*) 4 mg IV Q4H PRN Reason: NAUSEA/VOMITING Vital Signs - 8 hr 03/16/18 07:24 Temperature 98.3 F Pulse Rate 64 Respiratory 22 Rate Blood Pressure 121/66 (mmHg) O2 Sat by Pulse 98 Oximetry Oxygen Devices in Use Now: None Appearance: NAD, sitting up in a chair Ears/Nose/Mouth/Throat: Mucous Membranes Moist Respiratory: Symmetrical Chest Expansion and Respiratory Effort, Clear to Auscultation - , diminished Cardiovascular: NL Sounds; No Murmurs; No JVD, RRR Abdominal: NL Sounds; No Tenderness; No Distention Extremities: No Edema Skin: No Rash or Ulcers, - - Ecchymosis to left dorsal foot and toes, improving Neurological: Alert and Oriented x 3, NL Muscle Strength and Tone Lines/Tubes/Other Access: Clean, Dry and Intact Peripheral IV - site benign Nutrition: Taking PO's Result Diagrams: 03/16/18 05:37 03/16/18 05:37 Microbiology and Other Data: Microbiology 03/15/18 01:35 Gram Stain - Final Sputum Assess/Plan/Problems-Billing Assessment: - Patient Problems (1) Pneumonia Code(s): J18.9 - PNEUMONIA, UNSPECIFIED ORGANISM SNOMED Code(s): 247799056 Comment: - Afebrile, leukocytosis resolved - Community Acquired - Hemoptysis has resolved - Chest xray shows possible density in the left upper lobe - Chest CT shows left lobe PNA - Continue azithromycin and vantin for 5 days at home (2) Asthma Code(s): J45.909 - UNSPECIFIED ASTHMA, UNCOMPLICATED SNOMED Code(s): 962081851 Comment: - No signs of exacerbation at this time - Continue Albuterol PRN (3) DVT prophylaxis Code(s): HVI8992 - SNOMED Code(s): 559710148 Comment: - SQ heparin (4) Full code status Code(s): Z78.9 - OTHER SPECIFIED HEALTH STATUS SNOMED Code(s): 506647272 Status and Disposition: Inpatient. Stable for discharge to home today.
[2018-03-16 11:40] VITALS: BP 122/62
[2018-03-16] MEDS: cefTRIAXone(*) 1 GM in NS 0.9% 50 ML* 50 ML IVPB SCH (14:49)
[2018-03-16] MEDS: Azithromycin IV(*) 500 MG in NS 0.9% 250 ML* 250 ML IVPB SCH (14:49)
--- NOTE | 2018-03-16 22:06 | DS ---
CC: [facility] * DISCHARGE SUMMARY: DATE OF ADMISSION: 03/14/18 DATE OF DISCHARGE: 03/16/18 ATTENDING PHYSICIAN: Dr. Huber Clark * (dictated by Juancho Goyal NP). PRIMARY CARE PROVIDER: None. Temporarily going to the [facility]. PRIMARY DIAGNOSES: 1. Community-acquired pneumonia. 2. Hemoptysis, resolved. SECONDARY DIAGNOSIS: Asthma. STUDIES WHILE IN THE HOSPITAL: 1. Chest x-ray on 03/14/18. Radiologist impression: Left upper lobe density consistent with either a mass or infiltrate. Recommend a CT of the chest with contrast for further evaluation. 2. Chest CT on 03/14/18. Radiologist impression: CT findings are most consistent with partial lobular pneumonia involving the lingula of the left lung /segments. Recommend followup imaging after an appropriate course of therapy to ascertain resolution. DISCHARGE MEDICATIONS: [place] Medications: 1. Acetaminophen 650 mg oral every 4 hours as needed for fever or pain. 2. Azithromycin 250 mg oral daily for 5 days. 3. Vantin 200 mg oral every 12 hours for 5 days. 4. Albuterol HFA inhaler 1 puff inhalation every 6 hours as needed for shortness of breath or wheeze. HISTORY OF PRESENT ILLNESS/HOSPITAL COURSE: Mr. Gonzalez is a 62-year-old male with a past medical history significant for asthma who presented to the emergency room with complaints of coughing up blood for 3 to 4 days, night sweats, and shortness of breath. He also reported increased pain in his left chest with deep breath and coughing, a remote history of left leg swelling approximately 2 months ago. He denied any fevers or chills, headache, vomiting , nausea, or diarrhea. He had the chest pain associated with his cough and deep breath and again reported hemoptysis and slight shortness of breath. He denied hematuria or dysuria. Due to his symptoms, he presented to the emergency room for further evaluation of his symptoms. In the emergency room, he had routine lab work showing a white blood cell count of 18, chest x-ray with possible left upper lobe density, consolidation versus mass. He had a chest CT showing left upper lobe pneumonia. The hospitalists were asked to evaluate the patient for admission. During his hospitalization, he was placed on ceftriaxone and azithromycin. He remained afebrile after his initial fever of 101.9 in the emergency room. His vital signs were stable. He was initially requiring supplemental oxygen and was able to be weaned off oxygen during his stay. He was ambulating and tolerating a diet. He was feeling better. His leukocytosis resolved. The patient was feeling ready for discharge home today. Vital signs are as follows: Temperature 98.3, heart rate 70, respiratory rate 19, O2 sat 100% on room air, blood pressure 122/62. DISCHARGE PLAN: Mr. Gonzalez will be discharged to home. Activity as tolerated. He should be on a regular diet. In regards to his community-acquired pneumonia , he will be continued on Vantin and azithromycin for 5 more days to complete a 7-day course of treatment. He currently does not have a primary care provider and has been asked to contact the [facility] for a followup. He has been asked to return to the emergency room for any chest pain or shortness of breath. This is a summarized report of a complex medical history and hospital stay. For further details, please see the entire medical record. TIME SPENT: Time spent for this discharge was approximately 50 minutes, greater than half of that was spent with the patient [id number] discussing discharge plans and instructions. CONDITION ON DISCHARGE: Stable. JUANCHO CAAL NP [id number]/[facility] #: [id number] DESI
== END 2018-03-16 15:45 | disposition home or self-care (01) | DRG 194 ==
LOC: ED 13:39 → MED 16:30
PROVIDERS: ADMIT Hospitalist; ATTEND Student in an Organized Health Care Education/Training Program
DX: J18.1 Lobar pneumonia, unspecified organism (principal); R04.2 Hemoptysis; F17.210 Nicotine dependence, cigarettes, uncomplicated; J45.909 Unspecified asthma, uncomplicated; I45.10 Unspecified right bundle-branch block; Z80.3 Family history of malignant neoplasm of breast; Z83.3 Family history of diabetes mellitus; Z72.89 Other problems related to lifestyle; Z91.018 Allergy to other foods; Z82.49 Family history of ischemic heart disease and other diseases of the circulatory system
CPT/HCPCS: 36415; 71046; 71260; 80048; 80053; 81003; 81015; 82550; 82553; 83605; 83735; 83880; 84145; 84443; 84484; 85025; 85610; 85730; 86140; 87070; 87077; 87205; 93005; 99282; A9270-GY; J0456; J0696; J1644; J3475; Q9967